=== PATIENT | male | born 2000 | race Asian ===

== ENCOUNTER 2022-05-14 22:14 | Emergency (ER) | payer OTHER ==
[~2022-05-14] VITALS: Ht 175.3 cm; Wt 106.2 kg
[2022-05-14 23:06] LABS: BASO # 0.1 10^3/uL (0.0-0.2); BASO % 0.3 % (0.0-1.0); EOS # 0.1 10^3/uL (0.0-0.5); EOS % 0.7 % (0.0-3.0); HEMATOCRIT 48.7 % (42.0-52.0); HEMOGLOBIN 16.2 g/dl (13.5-17.5); LYMPH # 1.1 10^3/uL (1.5-5.0); LYMPH % 6.9 % (24.0-44.0); MEAN CORPUSCULAR HGB CONC 33.3 g/dl (32.0-36.5); MEAN CORPUSCULAR VOLUME 84.3 fl (80.0-96.0); MONO % 6.4 % (2.0-8.0); NEUTROPHILS % 85.3 % (36.0-66.0); PLATELET COUNT, AUTOMATED 328 10^3/uL (150-450); RED BLOOD COUNT 5.78 10^6/uL (4.30-6.10); WHITE BLOOD COUNT 16.3 10^3/uL (4.0-10.0)
[2022-05-14] MEDS ORDERED: GI COCKTAIL 50ML BTL(HYOSCYAMINE/MAALOX/LIDOCAINE VISCOUS)(1:3:1) PO ONE (23:30)
[2022-05-14 23:42] LABS: LIPASE 34 U/L (12-53)
[2022-05-14 23:44] LABS: ALBUMIN 4.7 G/DL (3.2-5.2); ALKALINE PHOSPHATASE 87 U/L (46-116); ALT/SGPT 48 U/L (7.0-40); AST/SGOT 24 U/L (<34); BILIRUBIN,DIRECT < 0.1 MG/DL (<0.4); BILIRUBIN,TOTAL 0.3 MG/DL (0.3-1.2); BLOOD UREA NITROGEN 19 MG/DL (9-23); CALCIUM LEVEL 9.7 MG/DL (8.5-10.1); CARBON DIOXIDE LEVEL 25 MMOL/L (20-31); CHLORIDE LEVEL 102 MMOL/L (98-107); CREATININE FOR GFR 1.05 MG/DL (0.70-1.30); GLUCOSE, FASTING 166 MG/DL (60-100); POTASSIUM SERUM 4.3 MMOL/L (3.5-5.1); SODIUM LEVEL 138 MMOL/L (136-145); TOTAL PROTEIN 8.7 G/DL (5.7-8.2)
[2022-05-15 01:00] VITALS: BP 117/67
[2022-05-15] MEDS ORDERED: CARA1TAB6 PO (01:04)
[2022-05-15] MEDS ORDERED: OMEP-173 PO (01:04)
[2022-05-15] MEDS ORDERED: SUCRALFATE 1 GM TAB PO ONE (01:05)
[2022-05-15] MEDS ORDERED: OMEPRAZOLE 20MG CAP PO ONE (01:05)
== END 2022-05-15 01:14 | disposition home or self-care (01) ==
LOC: M ED 22:14
DX: R10.13 Epigastric pain (principal); D72.829 Elevated white blood cell count, unspecified

== ENCOUNTER 2023-02-19 10:31 | Emergency (ER) | payer OTHER ==
[~2023-02-19] VITALS: Ht 175.3 cm; Wt 111.0 kg
[~2023-02-19 10:31] MED LIST: CARA1TAB6 PO; OMEP-173 PO
[2023-02-19] MEDS ORDERED: CETIRIZINE (ZyrTEC) 10 MG TAB PO ONE (13:40)
[2023-02-19] MEDS ORDERED: BENA2CRE2 TOP (13:40)
[2023-02-19] MEDS ORDERED: diphenhydrAMINE 50MG CAP PO ONE (13:40)
[2023-02-19] MEDS ORDERED: BENA25CA4 PO (13:40)
[2023-02-19] MEDS ORDERED: ALL10TAB2 PO (13:40)
[2023-02-19 13:51] VITALS: BP 133/78; TEMP 97.6; O2SAT 99
== END 2023-02-19 13:53 | disposition home or self-care (01) ==
LOC: M ED 10:31
DX: S60.562A Insect bite (nonvenomous) of left hand, initial encounter (principal); Z79.83 Long term (current) use of bisphosphonates; Z79.810 Long term (current) use of selective estrogen receptor modulators (SERMs); Z79.899 Other long term (current) drug therapy

== ENCOUNTER 2023-07-20 11:54 | Emergency (ER) | payer OTHER ==
[~2023-07-20] VITALS: Ht 175.3 cm; Wt 119.7 kg
[~2023-07-20 11:54] MED LIST changes: +ALL10TAB2 PO; +BENA25CA4 PO; +BENA2CRE2 TOP
[2023-07-20 11:55] VITALS: BP 119/90; TEMP 97.5; O2SAT 99
[2023-07-20] MEDS ORDERED: PRED20TA PO (14:24)
[2023-07-20] MEDS ORDERED: BENA25CA4 PO (14:24)
[2023-07-20] MEDS ORDERED: BETA115CR TOP (14:24)
== END 2023-07-20 14:37 | disposition home or self-care (01) ==
LOC: M ED 11:54
DX: L50.9 Urticaria, unspecified (principal); Z79.52 Long term (current) use of systemic steroids; Z79.899 Other long term (current) drug therapy